=== PATIENT | male | born 1980 | race Caucasian/White ===

== ENCOUNTER 2016-11-15 13:19 | Emergency (ER) | payer SELFPAY ==
[~2016-11-15] VITALS: Ht 170.2 cm; Wt 69.4 kg
[~2016-11-15 13:19] MED LIST: NAPROSYN500 MG PO; NOHOMEMEDS; VALIUM5 MG PO
[2016-11-15 15:00] LABS: ADD MIUA? NO; BILIRUBIN NEGATIVE; BLOOD NEGATIVE; COLOR YELLOW ((YELLOW)); GLUCOSE (STRIP) NEGATIVE; KETONES NEGATIVE; LEUKOCYTES NEGATIVE; NITRITE NEGATIVE; PROTEIN (STRIP) NEGATIVE; SPECIFIC GRAVITY 1.012 (1.000-1.030); UCUL ADDED? NO; UROBILINOGEN 0.2 MG/DL (0.2-1.0)
[2016-11-15 15:50] LABS: HEMATOCRIT 49.2 % (38.0-50.0); MCH 31.5 PG (29.0-34.0); MCHC 35.4 G/DL (30.0-36.0); MEAN PLAT.VOLUME 10.2 uM^3 (9.0-12.4); PLATELET COUNT 225 K/uL (156-360); RBC DIS.WIDTH-CV 12.5 % (11.8-14.6); RBC DIS.WIDTH-SD 40.9 % (39-53); RED BLOOD COUNT 5.53 M/uL (4.00-5.50); WHITE BLOOD COUNT 5.7 K/uL (4.1-10.2)
[2016-11-15 16:27] LABS: ANION GAP 11 MEQ/L (2-14); CHLORIDE 104 MEQ/L (99-109); GFR ESTIMATE (CALCULATED) > 59 mL/min/; GLUCOSE 86 mg/dL (70-99); POTASSIUM 4.1 MEQ/L (3.7-5.4); SAMPLE HEMOLYSIS CHECK 0; SAMPLE ICTERIC CHECK 0; SAMPLE LIPEMIA CHECK 0; SODIUM 139 MEQ/L (136-147); UREA NITROGEN (BUN) 16 mg/dL (9-23)
[2016-11-15 16:57] LABS: CREATINE KINASE 97 IU/L (1-294)
[2016-11-15 17:13] VITALS: BP 114/66
== END 2016-11-15 17:16 | disposition home or self-care (01) ==
LOC: RME 13:19 → EME 13:19 → RME 17:16
PROVIDERS: Nurse Practitioner Family
DX: R10.9 Unspecified abdominal pain (principal); R30.0 Dysuria; F17.200 Nicotine dependence, unspecified, uncomplicated
CPT/HCPCS: 74000; 80048; 81003; 82550; 85027; 99281; 99284

== ENCOUNTER 2018-07-11 13:57 | Emergency (ER) | payer BC ==
[~2018-07-11] VITALS: Ht 170.2 cm; Wt 71.4 kg
[2018-07-11 14:30] LABS: BILIRUBIN SMALL; BLOOD NEGATIVE; COLOR YELLOW ((YELLOW)); GLUCOSE (STRIP) NEGATIVE; KETONES 5; LEUKOCYTES NEGATIVE; NITRITE NEGATIVE; PROTEIN (STRIP) 30; SPECIFIC GRAVITY 1.031 (1.000-1.030); UCUL ADDED? NO
[2018-07-11 14:33] LABS: HEMOGLOBIN 15.3 G/DL (12.5-16.6); MCH 31.5 PG (29.0-34.0); MCHC 34.8 G/DL (30.0-36.0); MCV 90.5 FL (86-99); PLATELET COUNT 235 K/uL (156-360); RBC DIS.WIDTH-CV 12.2 % (11.8-14.6); RBC DIS.WIDTH-SD 40.5 % (39-53); RED BLOOD COUNT 4.86 M/uL (4.00-5.50); WHITE BLOOD COUNT 6.8 K/uL (4.1-10.2)
[2018-07-11 14:33] LABS: APPEARANCE SL.HAZY ((CLEAR))
[2018-07-11 14:44] LABS: CHLORIDE 107 mEq/L (99-109); SODIUM 141 mEq/L (136-147)
[2018-07-11 14:45] LABS: GLUCOSE 94 mg/dL (70-99)
[2018-07-11 14:49] LABS: CREATININE 1.1 mg/dL (0.6-1.3); GFR ESTIMATE (CALCULATED) > 59 mL/min/ (58.99-99999)
[2018-07-11 14:50] LABS: UREA NITROGEN (BUN) 23 mg/dL (9-23)
[2018-07-11 14:57] LABS: EPITHELIAL CELLS NONE SEEN /HPF; MUCUS 3+ /LPF; RED BLOOD CELLS NONE SEEN /HPF (0-5); WHITE BLOOD CELLS NONE SEEN /HPF (0-5)
[2018-07-11 14:58] LABS: BACTERIA RARE /HPF
[2018-07-11] MEDS ORDERED: ROBAXIN750 MG PO (16:20)
[2018-07-11] MEDS ORDERED: MEDROL DOSEPAK4 MG PO (16:20)
[2018-07-11 16:27] VITALS: BP 108/75
== END 2018-07-11 16:35 | disposition home or self-care (01) ==
LOC: EME 13:57
PROVIDERS: Physician Assistant
DX: M54.5 Low back pain (principal); Z87.442 Personal history of urinary calculi; F17.200 Nicotine dependence, unspecified, uncomplicated; Z91.030 Bee allergy status; Z91.041 Radiographic dye allergy status
CPT/HCPCS: 72100; 74018; 80048; 81003; 85027; 99281; 99284